=== PATIENT | female | born 1990 | race Caucasian/White ===

== ENCOUNTER 2017-09-20 22:16 | Emergency (ER) | payer SELFPAY ==
[2017-09-20] MEDS ORDERED: predniSONE 20 MG TAB ONE (22:56)
--- NOTE | 2017-09-20 23:00 | RAD ---
SINGLE VIEW OF THE CHEST: Comparison: None. History: Dyspnea for the past hour. Difficulty breathing. FINDINGS: Single view of the chest shows a normal sized cardiomediastinal silhouette. There is no evidence of c onsolidation, mass, or pleural effusion. The bones are unremarkable. IMPRESSION: No evidence of acute cardiopulmonary disease. POS: [facility]
== END 2017-09-20 23:01 | disposition home or self-care (01) ==
LOC: NAV ERS 22:16
DX: J45.901 Unspecified asthma with (acute) exacerbation (principal); Z87.891 Personal history of nicotine dependence
CPT/HCPCS: 71045; 93005; J7506; J7620

== ENCOUNTER 2019-10-10 12:35 | Emergency (ER) | payer SELFPAY | END 2019-10-10 13:36 | disposition home or self-care (01) | LOC: NAV ERS 12:35 | DX: F29 Unspecified psychosis not due to a substance or known physiological condition (principal); Z76.0 Encounter for issue of repeat prescription; R00.0 Tachycardia, unspecified; F20.9 Schizophrenia, unspecified; Z87.891 Personal history of nicotine dependence; Z79.899 Other long term (current) drug therapy | CPT/HCPCS: 99281 ==

== ENCOUNTER 2022-03-17 04:52 | Emergency (ER) | payer SELFPAY ==
[2022-03-17] MEDS ORDERED: predniSONE 20 MG TAB ONE (05:10)
[2022-03-17] MEDS ORDERED: Albuterol Sulfate 2.5 mg/3 ml Neb ONE (05:56)
== END 2022-03-17 06:18 | disposition left against medical advice (07) ==
LOC: NAV ERS 04:52
DX: J45.901 Unspecified asthma with (acute) exacerbation (principal); Z72.0 Tobacco use
CPT/HCPCS: 94640; J7512; J7611; J7620

== ENCOUNTER 2022-03-19 06:14 | Emergency (ER) | payer SELFPAY ==
[2022-03-19] MEDS ORDERED: methylPREDNISolone Sod Succ/PF 125 MG/2 ML VIAL ONE (06:44)
[2022-03-19] MEDS ORDERED: Albuterol Sulfate 2.5 mg/3 ml Neb ONE (07:27)
== END 2022-03-19 08:20 | disposition home or self-care (01) ==
LOC: NAV ERS 06:14
DX: J45.901 Unspecified asthma with (acute) exacerbation (principal); Z87.891 Personal history of nicotine dependence
CPT/HCPCS: 96372; J2930; J7611; J7620